=== PATIENT | female | born 1945 | race Caucasian/White ===

== ENCOUNTER 2018-01-26 19:03 | Inpatient (IN) | payer MEDICARE, MEDICAID ==
[~2018-01-26] VITALS: Ht 160 cm; Wt 51.0 kg
[~2018-01-26 19:03] MED LIST: ASPI81TA48 PO; BAC10T PO; CLON-527 PO; HYDR-3965 PO; HYDR-3972 PO; MELO-83 PO; PRED10TA PO; RISP2TAB44 PO
[2018-01-26] MEDS ORDERED: normal saline 1000ml 1,000 ML IV ONE (20:43)
[2018-01-26] MEDS ORDERED: normal saline 1000ML IV soln IVB ONE (20:45)
[2018-01-26 21:10] LABS: BASOPHILS # (AUTO) 0.1 X10'3 (0-0.2); BASOPHILS % (AUTO) 0.7 % (0-1); EOSINOPHILS # (AUTO) 0.2 X10'3 (0-0.9); HEMATOCRIT 37.5 % (35.0-45.0); HEMOGLOBIN 12.1 g/dl (12.0-16.0); LYMPHOCYTES # (AUTO) 1.7 X10'3 (1.1-4.8); LYMPHOCYTES % (AUTO) 21.2 % (21-51); MEAN CORPUSCULAR HEMOGLOBIN 24.1 PG (27.0-31.0); MEAN CORPUSCULAR HGB CONC 32.1 % (33.0-36.5); MEAN CORPUSCULAR VOLUME 75.1 FL (78-98); MEAN PLATELET VOLUME 6.7 FL (7.4-10.4); NEUTROPHILS # (AUTO) 4.9 X10'3 (1.8-7.7); NEUTROPHILS % (AUTO) 62.1 % (42-75); PLATELET COUNT 501 X10'3 (140-440); RED CELL DISTRIBUTION WIDTH 16.9 % (11.5-14.5); WHITE BLOOD COUNT 7.9 X10'3 (4.5-11.0)
[2018-01-26 21:22] LABS: PROTHROMBIN TIME 10.2 SECONDS (9.0-12.0)
[2018-01-26 21:29] LABS: ALANINE AMINOTRANSFERASE 12 U/L (12-78); ALBUMIN 2.6 G/DL (3.4-5.0); ALBUMIN/GLOBULIN RATIO 0.7 (1.1-1.5); ALKALINE PHOSPHATASE 88 IU/L (46-116); ANION GAP 5 (8-16); ASPARTATE AMINO TRANSFERASE 12 U/L (10-37); BILIRUBIN,TOTAL 0.4 MG/DL (0.1-1.0); BLOOD UREA NITROGEN 22 MG/DL (7-18); BUN/CREATININE RATIO 27.5 (6.6-38.0); CALCIUM 8.9 MG/DL (8.5-10.1); CHLORIDE 107 MMOL/L (99-107); GLUCOSE 89 MG/DL (70-104); MAGNESIUM 2.2 MG/DL (1.5-2.4); POTASSIUM 3.8 MMOL/L (3.5-5.1); SODIUM 140 MMOL/L (135-145); TOTAL CARBON DIOXIDE 27.6 MMOL/L (24-32); TOTAL PROTEIN 6.5 G/DL (6.4-8.2); eGFR 71 ML/MIN
[2018-01-26 22:51] LABS: CLARITY,URINE CLOUDY (Clear); COLOR,URINE YELLOW (Yellow); GLUCOSE, URINE NEGATIVE (Neg); KETONES,URINE 15 mg/dl (Neg); LEUKOCYTE ESTERASE ,URINE MODERATE (Neg); NITRITES, URINE NEGATIVE (Neg); OCCULT BLOOD,URINE NEGATIVE (Neg); PH,URINE 8.5 (4.8-8.0); PROTEIN,URINE TRACE mg/dl (Neg)
[2018-01-26 22:59] LABS: URINE AMPHETAMINE SCREEN NEGATIVE (Neg); URINE BARBITUATE SCREEN NEGATIVE (Neg); URINE BENZODIAZEPINES SCREEN NEGATIVE (Neg); URINE CANNABINOID SCREEN NEGATIVE (Neg); URINE COCAINE SCREEN NEGATIVE (Neg); URINE METHADONE SCREEN NEGATIVE (Neg); URINE OPIATE SCREEN POSITIVE (Neg); URINE PHENCYCLIDINE SCREEN NEGATIVE (Neg)
[2018-01-26 23:00] LABS: UA COLLECTION TYPE CLN CATCH MIDSTREAM
[2018-01-26 23:01] LABS: BACTERIA,URINE FEW /HPF (Neg); RBC,URINE NONE SEEN /HPF (0-2); WBC,URINE 0-4 /HPF (0-4)
[2018-01-26 23:02] LABS: ETHANOL < 0.010 GM/DL (0.0-0.010)
[2018-01-26 23:02] LABS: AMORPHOUS PHOSPHATES 4+; SQUAMOUS EPITHELIAL CELL,UR FEW /LPF (FEW); TRIPLE PHOSPHATE CRYST 2+ /HPF (NEGATIVE)
[2018-01-26] MEDS ORDERED: RISP1TAB3 PO (23:24)
[2018-01-26] MEDS ORDERED: DOXE50CA4 PO (23:24)
[2018-01-26] MEDS ORDERED: OXYB5TAB11 PO (23:24)
[2018-01-26] MEDS ORDERED: CELE-193 PO (23:24)
[2018-01-26] MEDS ORDERED: HYDR-565 PO (23:24)
[2018-01-26] MEDS ORDERED: magnesium 4gm in 100ml NS 100 ML IV PRN (23:45)
[2018-01-26] MEDS ORDERED: potassium Cl 20 mEq SR tablet PO PRN ×2 (23:45)
[2018-01-26] MEDS ORDERED: magnesium Cl slow-release 64mg tablet PO PRN (23:45)
[2018-01-26] MEDS ORDERED: ondansetron/PF 4mg/2ml inj IV PRN (23:45)
[2018-01-26] MEDS ORDERED: acetaminophen 325mg tablet PO PRN ×2 (23:45)
[2018-01-26] MEDS ORDERED: magnesium 2GM in 50ml NS 50 ML IV PRN (23:45)
[2018-01-26] MEDS ORDERED: potassium Cl 40MEQ/NS 500ml 500 ML IV PRN ×2 (23:45)
[2018-01-26] MEDS ORDERED: magnesium hydroxide 30ml (MOM) UD suspension PO PRN (23:45)
[2018-01-26] MEDS ORDERED: mag hydrox/Alum hydrox/simeth 30ml oral suspension PO PRN (23:45)
[2018-01-27 00:17] LABS: % IRON SATURATION 11 % (11-46); IRON 19 UG/DL (49-151); TOTAL IRON BINDING CAPACITY 177 UG/DL (259-388)
[2018-01-27] MEDS: normal saline 1000ml 1,000 ML IV SCH ×2 (00:18→13:29)
[2018-01-27 01:25] VITALS: BP 131/92
[2018-01-27] MEDS: CefTRIAXone/D5W-Rocephin 1gm 50 ML IV SCH ×2 (01:54→20:11)
[2018-01-27 02:54] LABS: HEMATOCRIT 34.7 % (35.0-45.0); HEMOGLOBIN 11.2 g/dl (12.0-16.0); MEAN CORPUSCULAR HEMOGLOBIN 24.4 PG (27.0-31.0); MEAN CORPUSCULAR HGB CONC 32.3 % (33.0-36.5); MEAN CORPUSCULAR VOLUME 75.7 FL (78-98); MEAN PLATELET VOLUME 6.8 FL (7.4-10.4); PLATELET COUNT 400 X10'3 (140-440); RED BLOOD COUNT 4.58 X10'6 (4.20-5.60); RED CELL DISTRIBUTION WIDTH 17.2 % (11.5-14.5); WHITE BLOOD COUNT 4.6 X10'3 (4.5-11.0)
[2018-01-27 03:11] LABS: ALBUMIN 2.2 G/DL (3.4-5.0); ANION GAP 8 (8-16); BLOOD UREA NITROGEN 20 MG/DL (7-18); CALCIUM 8.1 MG/DL (8.5-10.1); CHLORIDE 109 MMOL/L (99-107); CHOL/HDL RATIO 2.4 (0.00-4.99); CHOLESTEROL 85 MG/DL (0-200); CREATININE 0.69 MG/DL (0.40-0.90); GLUCOSE 85 MG/DL (70-104); HDL CHOLESTEROL 36 MG/DL (35-60); LDL CHOLESTEROL 38 MG/DL (50-100); PHOSPHORUS 2.6 MG/DL (2.3-4.5); POTASSIUM 3.6 MMOL/L (3.5-5.1); SODIUM 143 MMOL/L (135-145); TOTAL CARBON DIOXIDE 25.8 MMOL/L (24-32); TRIGLYCERIDES 62 MG/DL (20-135); eGFR 84 ML/MIN
[2018-01-27 06:00] VITALS: BP 139/69
[2018-01-27] MEDS: K and/or MAG REPLACEMENT MC SCH (07:43)
[2018-01-27] MEDS: enoxaparin 40mg/0.4ml syringe SQ SCH (07:50)
[2018-01-27] MEDS: OLANZapine 5mg rapidly disint. tablet PO SCH (08:35)
[2018-01-27 09:05] LABS: C DIFF ANTIGEN NEGATIVE (NEGATIVE); C DIFF SPECIMEN=DIARRHEA? ACCEPTABLE; C DIFFICILE TOXINS A&B NEGATIVE (Neg)
[2018-01-27 09:09] LABS: CRYPTOSPORIDIUM AG NEGATIVE (Neg); GIARDIA LAMBLIA AG NEGATIVE (Neg)
[2018-01-27 10:00] VITALS: BP 140/55
[2018-01-27] MEDS: HYDROcodone/acetaminophen 5mg/325mg tablet PO PRN ×3 (10:31→22:29)
[2018-01-27] MEDS ORDERED: gadopentetate dimeglumine 7.5 MMOL/15 ML syringe ONE (15:49)
[2018-01-27] MEDS ORDERED: pneumococcal 23-VAL P-sac vacc 25 mcg/0.5ml vial IMVAC ONE (16:00)
[2018-01-27 18:00] VITALS: BP 165/68
[2018-01-27] MEDS: baclofen 10mg tablet PO SCH (20:14)
[2018-01-27] MEDS: clonazePAM 1mg tablet PO SCH (20:14)
[2018-01-27] MEDS: oxybutynin 5mg tablet PO SCH (20:15)
[2018-01-27] MEDS: risperiDONE 0.5mg tablet PO SCH (20:15)
[2018-01-27] MEDS ORDERED: doxepin 25mg capsule PO SCH (21:00)
[2018-01-27 22:00] VITALS: BP 165/68
[2018-01-27] MEDS: loperamide 2mg capsule PO PRN (22:29)
[2018-01-28] MEDS: normal saline 1000ml 1,000 ML IV SCH ×2 (04:17→07:18)
[2018-01-28 05:00] VITALS: BP 146/67
[2018-01-28 06:26] LABS: HEMATOCRIT 34.2 % (35.0-45.0); HEMOGLOBIN 10.9 g/dl (12.0-16.0); MEAN CORPUSCULAR HEMOGLOBIN 24.2 PG (27.0-31.0); MEAN CORPUSCULAR HGB CONC 31.9 % (33.0-36.5); MEAN CORPUSCULAR VOLUME 75.9 FL (78-98); MEAN PLATELET VOLUME 6.6 FL (7.4-10.4); PLATELET COUNT 335 X10'3 (140-440); RED BLOOD COUNT 4.51 X10'6 (4.20-5.60); RED CELL DISTRIBUTION WIDTH 17.4 % (11.5-14.5); WHITE BLOOD COUNT 4.2 X10'3 (4.5-11.0)
[2018-01-28 06:43] LABS: ANION GAP 5 (8-16); BLOOD UREA NITROGEN 12 MG/DL (7-18); BUN/CREATININE RATIO 15.8 (6.6-38.0); CALCIUM 7.7 MG/DL (8.5-10.1); CHLORIDE 111 MMOL/L (99-107); CREATININE 0.76 MG/DL (0.40-0.90); GLUCOSE 88 MG/DL (70-104); PHOSPHORUS 3.2 MG/DL (2.3-4.5); POTASSIUM 3.6 MMOL/L (3.5-5.1); SODIUM 142 MMOL/L (135-145); TOTAL CARBON DIOXIDE 26.5 MMOL/L (24-32); eGFR 75 ML/MIN
[2018-01-28] MEDS: K and/or MAG REPLACEMENT MC SCH (06:48)
[2018-01-28] MEDS: oxybutynin 5mg tablet PO SCH (07:19)
[2018-01-28] MEDS: enoxaparin 40mg/0.4ml syringe SQ SCH (07:19)
[2018-01-28] MEDS: clonazePAM 1mg tablet PO SCH (07:19)
[2018-01-28] MEDS: risperiDONE 0.5mg tablet PO SCH (07:19)
[2018-01-28] MEDS: baclofen 10mg tablet PO SCH (07:19)
[2018-01-28] MEDS: OLANZapine 5mg rapidly disint. tablet PO SCH (07:20)
[2018-01-28] MEDS ORDERED: aspirin 81mg tablet.DR PO SCH (08:00)
[2018-01-28] MEDS ORDERED: celeCOXIB 100mg capsule PO SCH (08:00)
[2018-01-28] MEDS ORDERED: naproxen 500mg tablet PO SCH (08:00)
[2018-01-28 10:00] VITALS: BP 126/51
[2018-01-28] MEDS ORDERED: RIVA1PAT9 TOP (13:54)
[2018-01-28] MEDS: loperamide 2mg capsule PO PRN (15:10)
== END 2018-01-28 15:30 | disposition home or self-care (01) | DRG 70 ==
LOC: ER 19:04 → ED HOLD 23:45 → ORTHO 4S 01-27 01:13
PROVIDERS: ADMIT Family Medicine; ATTEND Internal Medicine
PROC: BW38YZZ Magnetic Resonance Imaging (MRI) of Head using Other Contrast (ICD-10-PCS; principal; 2018-01-27)
DX: G93.40 Encephalopathy, unspecified (principal); E43 Unspecified severe protein-calorie malnutrition; N39.0 Urinary tract infection, site not specified; J44.9 Chronic obstructive pulmonary disease, unspecified; F02.80 Dementia in other diseases classified elsewhere, unspecified severity, without behavioral disturbance, psychotic disturbance, mood disturbance, and anxiety; F20.9 Schizophrenia, unspecified; M06.9 Rheumatoid arthritis, unspecified; K21.9 Gastro-esophageal reflux disease without esophagitis; B19.20 Unspecified viral hepatitis C without hepatic coma; H26.9 Unspecified cataract; M19.90 Unspecified osteoarthritis, unspecified site; Z23 Encounter for immunization; Z90.49 Acquired absence of other specified parts of digestive tract
CPT/HCPCS: 36415; 70450; 70553; 71045; 80048; 80053; 80061; 80305; 80320; 81001; 83540; 83550; 83735; 84100; 84443; 84484; 85025; 85027; 85610; 87045; 87046; 87070; 87077; 87088; 87186; 87324; 87328; 87329; 87336; 87449; 89055; 90732; 93005; 96360; 96361; 97110; 97116; 97161; 97530; 99285; A6212; A6213; A6250; A9579; J0696; J1650; J7030

== ENCOUNTER 2019-04-18 20:54 | Inpatient (IN) | payer MEDICARE, MEDICAID ==
[~2019-04-18] VITALS: Ht 160 cm; Wt 38.2 kg
[~2019-04-18 20:54] MED LIST changes: -BAC10T PO; +CELE-193 PO; +DOXE50CA4 PO; -HYDR-3965 PO; -HYDR-3972 PO; +HYDR-4353 PO; -MELO-83 PO; +OXYB5TAB16 PO; -PRED10TA PO; +RISP1TAB3 PO; -RISP2TAB44 PO; +RIVA1PAT9 TOP
[2019-04-18 21:55] LABS: BASOPHILS # (AUTO) 0.1 X10'3 (0-0.2); BASOPHILS % (AUTO) 0.8 % (0-1); EOSINOPHILS # (AUTO) 0.3 X10'3 (0-0.9); EOSINOPHILS % (AUTO) 3.6 % (0-6); HEMATOCRIT 38.4 % (35.0-45.0); HEMOGLOBIN 12.5 g/dl (12.0-16.0); LYMPHOCYTES # (AUTO) 1.8 X10'3 (1.1-4.8); LYMPHOCYTES % (AUTO) 20.3 % (21-51); MEAN CORPUSCULAR HEMOGLOBIN 25.5 PG (27.0-31.0); MEAN CORPUSCULAR HGB CONC 32.6 g/dL (33.0-36.5); MEAN CORPUSCULAR VOLUME 78.3 FL (78-98); MEAN PLATELET VOLUME 6.6 FL (7.4-10.4); MONOCYTES # (AUTO) 0.9 X10'3 (0-0.9); MONOCYTES % (AUTO) 9.8 % (2-12); NEUTROPHILS # (AUTO) 5.7 X10'3 (1.8-7.7); NEUTROPHILS % (AUTO) 65.5 % (42-75); PLATELET COUNT 337 X10'3 (140-440); RED BLOOD COUNT 4.91 X10'6 (4.20-5.60); RED CELL DISTRIBUTION WIDTH 17.5 % (11.5-14.5); WHITE BLOOD COUNT 8.7 X10'3 (4.5-11.0)
[2019-04-18 21:57] LABS: PARTIAL THROMBOPLASTIN TIME 30 SECONDS (22-32)
[2019-04-18 21:59] LABS: ALANINE AMINOTRANSFERASE 15 U/L (12-78); ALBUMIN 3.4 G/DL (3.4-5.0); ALBUMIN/GLOBULIN RATIO 0.9 (1.1-1.5); ALKALINE PHOSPHATASE 83 IU/L (46-116); ANION GAP 7 (8-16); ASPARTATE AMINO TRANSFERASE 12 U/L (10-37); BILIRUBIN,TOTAL 0.3 MG/DL (0.1-1.0); BLOOD UREA NITROGEN 19 MG/DL (7-18); BUN/CREATININE RATIO 27.5 (6.6-38.0); CALCIUM 8.6 MG/DL (8.5-10.1); CHLORIDE 105 MMOL/L (99-107); CREATININE 0.69 MG/DL (0.40-0.90); GLUCOSE 98 MG/DL (70-104); SODIUM 138 MMOL/L (135-145); TOTAL CARBON DIOXIDE 26.2 MMOL/L (24-32); eGFR 83 ML/MIN
[2019-04-18] MEDS ORDERED: aspirin 325mg tablet PO ONE (22:10)
[2019-04-18] MEDS ORDERED: enoxaparin 40mg/0.4ml syringe SUBCUT ONE (22:10)
[2019-04-18] MEDS ORDERED: enoxaparin 100mg/ml syringe SUBCUT ONE (22:10)
[2019-04-18] MEDS ORDERED: CHOL50004 PO (22:42)
[2019-04-18] MEDS ORDERED: ASPI-920 PO (22:42)
[2019-04-18] MEDS ORDERED: CELE-85 PO (22:42)
[2019-04-19] VITALS (7 sets, daily range): BP systolic 113–150; BP diastolic 49–76
--- NOTE | 2019-04-19 00:03 | NUR ---
PRIMARY CONTACT - STEPHENIE, [id number] - [phone] EMILY, GRANDDAUGHTER - [phone]
[2019-04-19] MEDS ORDERED: risperiDONE 0.5mg tablet PO ONE (00:35)
[2019-04-19] MEDS ORDERED: ondansetron/PF 4mg/2ml inj IV PRN (00:40)
[2019-04-19] MEDS ORDERED: acetaminophen 325mg tablet PO PRN (00:40)
[2019-04-19] MEDS ORDERED: mag hydrox/Alum hydrox/simeth 30ml oral suspension PO PRN (00:40)
[2019-04-19] MEDS ORDERED: magnesium hydroxide 30ml (MOM) UD suspension PO PRN (00:40)
[2019-04-19] MEDS: HYDROcodone/acetaminophen 10/325mg tab PO PRN ×2 (02:31→20:56)
--- NOTE | 2019-04-19 06:15 | NUR ---
Patient in room PCU 3013. I have received report from SUZIE Huynh and had the opportunity to ask questions and assume patient care. Patient is currently resting in bed, bed locked and low, call light in reach. No acute distress, will continue to monitor.
[2019-04-19] MEDS ORDERED: heparin, porcine 5000 units/ml vial SQ SCH (08:00)
[2019-04-19] MEDS: aspirin 81mg tab.chew PO SCH (08:06)
[2019-04-19] MEDS: risperiDONE 0.5mg tablet PO SCH ×2 (08:07→20:46)
[2019-04-19] MEDS: HYDROcodone/acetaminophen 5mg/325mg tablet PO PRN ×2 (08:12→14:29)
[2019-04-19] MEDS ORDERED: ipratropium 0.5 MG/2.5ML nebule IH PRN (10:15)
--- NOTE | 2019-04-19 10:16 | NUR ---
Patient complaining of SOB, SPO2 96%, states she has hx of COPD, attempted to confirm with her brother in law but no answer, Dr. Perry notified and ordered albuterol and atrovent inhalers, orders input and RT paged.
--- NOTE | 2019-04-19 12:53 | NUR ---
Noted that pt with low BMI of 14.9 however current documented wt of 38.2 kg is pt stated. Patient's most recent scaled wt hx in EMR is 51 kg 01/27/18 using gurney. Pt with no edema or wounds, no decrease in muscle strength. Pt currently on heart healthy diet documented with 75-100% PO intake meeting nutrient needs. Per H&P pt appears cachectic meeting criteria for malnutrition, MD notified. Per H&P pt is a poor historian with hx dementia, malnutrition education not appropriate at this time. Pt admit in hemodynamically stable condition with c/o CP with MD and significant schizophrenia. LBM 04/19. Will continue to follow. Recommendations: 1) Continue with heart healthy diet 2) Monitor need for ONS if changes in PO intake 3) Wt per rx Addendum: 04/19/19 at [address] Amended: Links added.
[2019-04-19] MEDS ORDERED: ipratropium/albuterol 3ml nebule IH PRN (14:00)
--- NOTE | 2019-04-19 18:00 | NUR ---
Patient in room U 3013. I have received report from Alea LARSEN and had the opportunity to ask questions and assume patient care. Addendum: 04/20/19 at 0637 by Ai Palacio RN From Elo LARSEN
--- NOTE | 2019-04-19 18:29 | NUR ---
Problems reprioritized. Patient report given, questions answered & plan of care reviewed with SUZIE Cloud. Patient currently resting in bed, bed locked and low, call light in reach, stable at shift [facility]
[2019-04-19] MEDS: doxepin 25mg capsule PO SCH (20:47)
[2019-04-19] MEDS: enoxaparin 40mg/0.4ml syringe SUBCUT SCH (20:49)
[2019-04-20 02:00] VITALS: BP 104/46
--- NOTE | 2019-04-20 05:00 | NUR ---
Patient slept well all night. Bed alarm needs to be on at all times, forgets to press the call button when out of bed or needs the bedside commode.
--- NOTE | 2019-04-20 06:27 | NUR ---
Patient in room PCU 3013. I have received report from SUZIE Cloud and had the opportunity to ask questions and assume patient care. Patient is currently sleeping in bed, bed locked and low, call light in reach, no acute distress, will continue to monitor.
--- NOTE | 2019-04-20 06:36 | NUR ---
Problems reprioritized. Patient report given, questions answered & plan of care reviewed with Alea LARSEN. Addendum: 04/20/19 at 0637 by Ai Palacio RN with Elo LARSEN
[2019-04-20 07:02] VITALS: BP 112/50
[2019-04-20] MEDS: risperiDONE 0.5mg tablet PO SCH ×2 (07:55→21:21)
[2019-04-20] MEDS: aspirin 81mg tab.chew PO SCH (07:55)
[2019-04-20] MEDS: enoxaparin 40mg/0.4ml syringe SUBCUT SCH (07:57)
[2019-04-20] MEDS ORDERED: nitroGLYCERIN 0.2mg/hour patch TD SCH (08:00)
[2019-04-20 11:22] VITALS: BP 114/51
[2019-04-20] MEDS: HYDROcodone/acetaminophen 5mg/325mg tablet PO PRN (12:48)
[2019-04-20] MEDS: atorvastatin 20mg tablet PO SCH (14:51)
--- NOTE | 2019-04-20 14:58 | NUR ---
PAGER ID: [phone] MESSAGE: SUZIE Gasca, ext [phone], [phone], [place], patient reporting dysuria and asking if she has a "kidney infection" no UA showing in record.
[2019-04-20 15:00] VITALS: BP 113/63
[2019-04-20 15:50] LABS: CLARITY,URINE CLEAR (Clear); COLOR,URINE YELLOW (Yellow); GLUCOSE, URINE NEGATIVE (Neg); KETONES,URINE NEGATIVE (Neg); LEUKOCYTE ESTERASE ,URINE NEGATIVE (Neg); NITRITES, URINE NEGATIVE (Neg); OCCULT BLOOD,URINE TRACE-INTACT (Neg); PH,URINE 5.5 (4.8-8.0); PROTEIN,URINE NEGATIVE (Neg); UROBILINOGEN,URINE 0.2 E.U/dL (0.2-1.0)
[2019-04-20 16:05] LABS: UA COLLECTION TYPE OTHER
[2019-04-20 16:09] LABS: BACTERIA,URINE NONE SEEN /HPF (Neg); MUCUS STRANDS NONE SEEN /LPF (Neg); RBC,URINE 0-2 /HPF (0-2); SQUAMOUS EPITHELIAL CELL,UR FEW /LPF (FEW); WBC,URINE NONE SEEN /HPF (0-4)
[2019-04-20 18:00] VITALS: BP 124/63
--- NOTE | 2019-04-20 18:00 | NUR ---
Patient in room PCU 3013. I have received report from Elo LARSEN and had the opportunity to ask questions and assume patient care.
--- NOTE | 2019-04-20 18:16 | NUR ---
Problems reprioritized. Patient report given, questions answered & plan of care reviewed with SUZIE Cloud. Patient currently resting in bed, bed locked and low, call light in reach, visitor at bedside, stable at shift change.
--- NOTE | 2019-04-20 18:57 | NUR ---
PAGER ID: [phone] MESSAGE: [id number] Keira Monterroso. No pain medication for arthritic knee pain, had [place] last night and only has Tylenol for fever. Would you like to prescribe something for pain?
--- NOTE | 2019-04-20 19:05 | NUR ---
PAGER ID: [phone] MESSAGE: [phone] Keira Monterroso. No pain medication for arthritic knee pain, had [place] last night and only has Tylenol for fever. Current pain 04/06. Would you like to prescribe something for pain? Ai LARSEN [phone]
[2019-04-20] MEDS ORDERED: HYDROcodone/acetaminophen 5mg/325mg tablet PO PRN (19:15)
[2019-04-20] MEDS: HYDROcodone/acetaminophen 10/325mg tab PO PRN (19:27)
[2019-04-20] MEDS: doxepin 25mg capsule PO SCH (21:21)
[2019-04-20 23:00] VITALS: BP 97/47
[2019-04-21 02:00] VITALS: BP 106/43
[2019-04-21 06:00] VITALS: BP 107/56
--- NOTE | 2019-04-21 06:55 | NUR ---
Problems reprioritized. Patient report given, questions answered & plan of care reviewed with Enmanuel RN.
--- NOTE | 2019-04-21 06:59 | NUR ---
Patient in room PCU 3013. I have received report from jill rick and had the opportunity to ask questions and assume patient care.
[2019-04-21] MEDS: risperiDONE 0.5mg tablet PO SCH (08:12)
[2019-04-21] MEDS: aspirin 81mg tab.chew PO SCH (08:12)
[2019-04-21] MEDS: atorvastatin 20mg tablet PO SCH (08:12)
[2019-04-21] MEDS: HYDROcodone/acetaminophen 10/325mg tab PO PRN (08:18)
[2019-04-21 11:00] VITALS: BP 115/51
[2019-04-21] MEDS ORDERED: ATOR20TA66 PO (11:13)
[2019-04-21 11:42] LABS: BASOPHILS # (AUTO) 0.1 X10'3 (0-0.2); EOSINOPHILS # (AUTO) 0.2 X10'3 (0-0.9); EOSINOPHILS % (AUTO) 2.5 % (0-6); HEMATOCRIT 33.6 % (35.0-45.0); LYMPHOCYTES # (AUTO) 1.1 X10'3 (1.1-4.8); LYMPHOCYTES % (AUTO) 17.4 % (21-51); MEAN CORPUSCULAR HEMOGLOBIN 25.5 PG (27.0-31.0); MEAN CORPUSCULAR HGB CONC 32.8 g/dL (33.0-36.5); MEAN CORPUSCULAR VOLUME 77.9 FL (78-98); MEAN PLATELET VOLUME 6.3 FL (7.4-10.4); MONOCYTES # (AUTO) 0.7 X10'3 (0-0.9); MONOCYTES % (AUTO) 11.1 % (2-12); NEUTROPHILS # (AUTO) 4.3 X10'3 (1.8-7.7); PLATELET COUNT 277 X10'3 (140-440); RED BLOOD COUNT 4.32 X10'6 (4.20-5.60); RED CELL DISTRIBUTION WIDTH 16.8 % (11.5-14.5); WHITE BLOOD COUNT 6.4 X10'3 (4.5-11.0)
[2019-04-21 11:59] LABS: ALBUMIN 2.6 G/DL (3.4-5.0); ANION GAP 7 (8-16); BLOOD UREA NITROGEN 21 MG/DL (7-18); BUN/CREATININE RATIO 32.3 (6.6-38.0); CALCIUM 8.6 MG/DL (8.5-10.1); CHLORIDE 104 MMOL/L (99-107); CREATININE 0.65 MG/DL (0.40-0.90); GLUCOSE 95 MG/DL (70-104); POTASSIUM 4.5 MMOL/L (3.5-5.1); SODIUM 137 MMOL/L (135-145); TOTAL CARBON DIOXIDE 26.3 MMOL/L (24-32); eGFR 89 ML/MIN
== END 2019-04-21 13:42 | disposition home or self-care (01) | DRG 281 ==
LOC: ER 20:55 → PCU 3S 04-19 01:50
PROVIDERS: ADMIT Internal Medicine; ATTEND Internal Medicine
DX: I21.4 Non-ST elevation (NSTEMI) myocardial infarction (principal); Z68.1 Body mass index [BMI] 19.9 or less, adult; R64 Cachexia; F20.9 Schizophrenia, unspecified; J45.909 Unspecified asthma, uncomplicated; M17.0 Bilateral primary osteoarthritis of knee; R15.9 Full incontinence of feces; M19.042 Primary osteoarthritis, left hand; M19.041 Primary osteoarthritis, right hand; K21.9 Gastro-esophageal reflux disease without esophagitis; M06.9 Rheumatoid arthritis, unspecified; B19.20 Unspecified viral hepatitis C without hepatic coma; R32 Unspecified urinary incontinence; Z87.891 Personal history of nicotine dependence; Z87.440 Personal history of urinary (tract) infections; Z90.49 Acquired absence of other specified parts of digestive tract; Z79.899 Other long term (current) drug therapy; Z79.82 Long term (current) use of aspirin
CPT/HCPCS: 36415; 71045; 80048; 80053; 81001; 84484; 85025; 85610; 85730; 87081; 93005; 94640; 94760; 96372; 99285; G0378; J1644; J1650